=== PATIENT | male | born 1965 | race Caucasian/White ===

== ENCOUNTER → 2019-06-17 | Outpatient (CLI) | payer MEDICARE, OTHER ==
[2016-01-24 16:24] VITALS: BP 167/88
--- NOTE | 2019-06-17 17:54 | RAD ---
LUMBAR SPINE 2-3V History: Back and neck pain Comparison: None. Findings: 2 views of the lumbar spine are submitted. There has been posterolateral fusion with bilateral pedicle screws at what is considered L3, L4, L5, apparently transitional anatomy of the lumbar spine. There is grade 1 anterior spondylolisthesis at L4-5. There is multilevel lumbar degenerative disc disease greatest at L5-S1, L4-5, L2-3, L1-2. There is very mild grade 1 anterior spondylolisthesis L2-3, minimal posterior subluxation L1 relative to L2. There has been posterior decompression centered about what is considered the L4 level. Lumbar vertebral body stature is maintained. IMPRESSION: 1. There is intact posterolateral fusion hardware at what is considered L3, L4, L5, posterior decompression centered at L4. 2. There is multilevel lumbar degenerative disc disease. There is mild alignment as stated. Electronically signed by: Blayne Guerrero MD (06/17/2019 5:51 PM) [id number]
--- NOTE | 2019-06-17 17:57 | RAD ---
CERVICAL SPINE 2-3V History: Neck pain Comparison: None. Findings: 2 views of the cervical spine are submitted. Cervical vertebral body stature is maintained. There is fairly advanced degenerative disc disease C6-7 and minimally at C5-6 with spondylosis at the same levels. There is negligible anterior spondylolisthesis at C3-4 and C4-C5. There is multilevel facet degenerative change greatest of mid cervical levels. There is atherosclerotic calcification of the left carotid artery in the neck. Impression: 1. There is degenerative disc disease greatest at C6-7 and to lesser degree at C5-6 with spondylosis at these levels. There is facet degenerative change greatest of mid cervical levels, mild abnormal alignment as stated. 2. There is atherosclerotic calcification of the left carotid artery in the neck. Electronically signed by: Blayne Guerrero MD (06/17/2019 5:54 PM) [email or web address]
== END | disposition home or self-care (01) ==
LOC: RAD 09:49
PROVIDERS: ATTEND Surgery
DX: M43.12 Spondylolisthesis, cervical region (principal); M43.16 Spondylolisthesis, lumbar region; M51.36 Other intervertebral disc degeneration, lumbar region; I65.23 Occlusion and stenosis of bilateral carotid arteries; M47.812 Spondylosis without myelopathy or radiculopathy, cervical region
CPT/HCPCS: 72040; 72100